=== PATIENT | male | born 1960 | race Caucasian/White ===

== ENCOUNTER 2021-07-05 11:08 | Emergency (ER) | payer OTHER ==
[2021-07-05 11:18] VITALS: BP 144/88; PULSE 83; TEMP 97.6; BMI 29.0
== END 2021-07-05 12:46 | disposition home or self-care (01) ==
LOC: JERFT 11:08
DX: M79.644 Pain in right finger(s) (principal); W20.8XXA Other cause of strike by thrown, projected or falling object, initial encounter
CPT/HCPCS: 73130-TC-RT-FY; 99283-25